=== PATIENT | male | born 1950 | race Caucasian/White ===

== ENCOUNTER 2020-11-12 22:47 | Inpatient (IN) | payer BC, MEDICARE ==
[~2020-11-12] VITALS: Ht 175.3 cm; Wt 91.1 kg
[~2020-11-12 22:47] MED LIST: ACIPHEX20 MG PO; ASPIRIN EC81 MG PO; COZAAR50 MG PO; FEXOFENADINE H180 MG PO; HYDROCODON-ACE1 EA11 PO; HYDROMORPHONE HC4 MG PO; IRON325 M1 PO; LIPITOR20 MG PO; LISINOPRIL20 MG PO; LISINOPRIL30 MG PO; METOPROLOL SUC100 MG PO; MILK OF MA400 MG/5 M PO; MIRALAX17 GM PO; NORCO 5-325 TA1 EACH PO; NUCYNTA50 MG PO; OXYCODONE HCL5 MG PO; SIMVASTATIN40 MG PO; SKELAXIN800 MG PO; TOPROL XL100 MG PO; TRAMADOL HCL50 MG PO; VITAMIN C100 MG PO; VITAMIN C500 M1 PO; XANAX0.5 MG PO; XARELTO10 MG PO
[2020-11-12] MEDS ORDERED: LISINOPRIL20 MG PO (23:08)
[2020-11-12] MEDS ORDERED: METOPROLOL SUCC50 MG PO (23:09)
[2020-11-12] MEDS ORDERED: JANUMET 50-5001 EACH PO (23:10)
--- NOTE | 2020-11-13 01:56 | NUR ---
ADMIT THIS 70 YEAR OLD MALE TO CCU PER STRETCHER FROM ED. IS ALERT AND ORIENTED X3. AMB TO BR TO VOID REPORTS SHY BLADDER. HR TO 160'S WITHOUT SYMPTOMS. INFORMED WOULD NOT ALLOW THAT AGAIN UNTIL HR UNDER BETTER CONTROL. CARDIZEM INFUSION ON ARRIVAL AT 7.5MG/HR, INCREASED TO 15MG/HR AT 0105 HR VARIES 120-150. NO CHEST PAIN AT THIS TIME. SLIPPER SOCKS IN PLACE.
--- NOTE | 2020-11-13 02:04 | NUR ---
HR 90'S , BP 98/69, CARDIZEM DEC TO 12MG/HR
--- NOTE | 2020-11-13 03:02 | NUR ---
HR 80-90'S AT REST, BP 91/62, CARDIZEM DEC TO 10MG/HR. PT RESTING WATCHING TV.
--- NOTE | 2020-11-13 04:18 | NUR ---
CONT TO REST BUT NOT SLEEP. ASSESSMENT DONE.
--- NOTE | 2020-11-13 05:19 | NUR ---
HR HAS BEEN CONTROLLED AT REST ON CARDIZEM 10MG/HR. PT STOOD AT BEDSIDE TO VOID AND HR INC UP TO 180. HR BACK TO 80'S WITH IN MINUTES OF GETTING BACK TO BED. ASKING FOR COFFEE WITH BREAKFAST. ADVISED TO DRINK DECAF COFFEE WITH BREAKFAST AND DECREASE CAFFIENE INTAKE FOR NOW.
--- NOTE | 2020-11-13 06:26 | NUR ---
HAS NOT SLEPT SINCE ADMISSION. HR 80'S AT REST. PO CARDIZEM WAS GIVEN.
--- NOTE | 2020-11-13 07:30 | NUR ---
REPORT RECIEVED. PATIENT RESTING IN BED. DENIES PAIN OR DIZZINESS. WHEN TALKING WITH PATIENT, HR FROM 86 TO 170'S. WHEN PATIENT GETS MORE ANXIOUS HR GOES UP. PATIENT ASK FOR SLEEPING PILL, TOLD PATIENT I WILL TALK WITH ABOUT GETTING HIM SOMETHING FOR ANXIETY. PATIENT STATES HE ANXIOUS.
--- NOTE | 2020-11-13 08:00 | NUR ---
ASSESSMENT DONE. CARDIZEM GTT INCREASED TO 12.5 MG/HR.
--- NOTE | 2020-11-13 09:30 | NUR ---
DR. ZHENG HERE TO SEE PATIENT. PATIENT HR UP TO 150-170. ORDERS RECIEVED TO GIVE LOPRESSOR 25 MG PO AND 5 MG IV.
--- NOTE | 2020-11-13 09:40 | NUR ---
LOPRESSOR 5 MG IV AND LOPRESSOR 25 MG PO GIVEN ORDERS BY DR. ZHENG. DR. ZHENG DISCUSSED POC TO PATIENT, HE ALS TALKED WITH PATIENT ABOUT A-FIB AND TAKING BLOOD THINNER WELL HAVING AN ECHOCARDIOCARDIOGRAM. PATIENT IS UNDERSTANDING.
--- NOTE | 2020-11-13 09:45 | NUR ---
HR DOWN TO 80'S AFTER LOPRESSOR 5 MG IV GIVEN.
--- NOTE | 2020-11-13 10:05 | NUR ---
ROUTINE MEDICATIONS GIVEN, VISTARIL 25 MG PO GIVEN FOR ANXIETY. SHAVE GIVEN PER PATIENT REQUEST.
--- NOTE | 2020-11-13 13:46 | NUR ---
CARDIZEM GTT TO OFF.
--- NOTE | 2020-11-13 13:50 | NUR ---
CONVERTED TO NSR. DR. ZHENG AWARE NO FUTHER ORDERS AT THIS TIME. PATIENT IS RESTING. IS W/O C/O.
--- NOTE | 2020-11-13 14:20 | NUR ---
RESTFUL AT THIS TIME DENIES PROBLEMS, REMAINS IN SR. IVF COMPLETE.
[2020-11-13] MEDS ORDERED: FUROSEMIDE20 MG PO (15:40)
[2020-11-13] MEDS ORDERED: ATORVASTATIN CA20 MG PO (15:50)
[2020-11-13] MEDS ORDERED: SENOKOT8.6 MG PO (16:14)
[2020-11-13] MEDS ORDERED: MACULAR HEALTH1 EACH PO (16:14)
--- NOTE | 2020-11-13 16:15 | NUR ---
MED REC COMPLETE
--- NOTE | 2020-11-13 16:50 | NUR ---
DR. ZHENG UPDATED ON PATIENT STATUS. ORDERS RECIEVED TO TRANSFER TO MED-SURG W/O TELE. PATIENT SITTING IN CHAIR.
--- NOTE | 2020-11-13 17:13 | EKG ---
[facility] [address] [facility] [place] [address] Signed Atrial fibrillation with rapid ventricular response Nonspecific ST abnormality Abnormal ECG When compared with ECG of 12-NOV-2020 22:55, (Unconfirmed) Vent. rate has decreased BY 69 BPM Confirmed by DAYSI ZHENG DO ([id number]) on 11/13/2020 5:13:39 PM Electronically Signed By: DAYSI ZHENG DO 11/13/20 1713 PATIENT NAME: REBECA POLK Electrocardiogram DATE OF : 54 PHYSICIAN: DAYSI ZHENG DO REPORT #: [id number] REPORT IS CONFIDENTIAL AND NOT TO BE RELEASED WITHOUT AUTHORIZATION
--- NOTE | 2020-11-13 17:13 | EKG ---
[facility] [address] [facility] [place], [place] [address] Signed Atrial fibrillation with rapid ventricular response Nonspecific ST abnormality Abnormal ECG When compared with ECG of 12-NOV-2020 22:55, (Unconfirmed) Previous ECG has undetermined rhythm, needs review Confirmed by DAYSI ZHENG DO ([id number]) on 11/13/2020 5:13:34 PM Electronically Signed By: DAYSI ZHENG DO 11/13/20 1713 PATIENT NAME: REBECA POLK Electrocardiogram DATE OF : 54 PHYSICIAN: DAYSI ZHENG DO REPORT #: [id number] REPORT IS CONFIDENTIAL AND NOT TO BE RELEASED WITHOUT AUTHORIZATION
--- NOTE | 2020-11-13 17:15 | NUR ---
REPORT TO ELZA HARMON RN ON MED-SURG. MONITOR DC'D.
--- NOTE | 2020-11-13 17:25 | NUR ---
AMBULATED TO [facility] ACCOMP BY RN. TOLERATED AMBULATION WELL. UPON ARRIVAL TO [facility] PATIENT SITTING AT BEDSIDE TO EAT DINNER.
--- NOTE | 2020-11-13 17:30 | NUR ---
PT AMBULATED TO ROOM FROM CCU W/ JOAN CCU RN. DINNER IN ROOM. PT SITTING UP ON SIDE OF BED EATING. GOOD APPETITE THIS EVENING. CBG 111 NOT REQUIRING ANY SS INSULIN. LUNG SOUNDS ARE CLEAR. PT DENIES PAIN OR NAUSEA. BOWEL TONES ACTIVE. BM TODAY. VSS. HR REGULAR. CALL LIGHT IN REACH. NO OTHER NEEDS AT THIS TIME.
--- NOTE | 2020-11-13 19:15 | NUR ---
BEDSIDE REPORT RECEIVED FROM OFFGOING RN, ZULLY. PT RESTING IN BED WITH EYES CLOSED, LYING ON HIS L SIDE. PT DOES NOT WAKE WHILE ANIMAL HUSBANDRY WORKER IN ROOM. WHITE BOARD UPDATED. CALL LIGHT IN REACH.
--- NOTE | 2020-11-13 21:52 | NUR ---
PT ASSESSMENT COMPLETE. PT RESTING IN BED WITH EYES CLOSED. WAKES EASILY. PT DENIES PAIN, NAUSEA, AND SOB. HR REGULAR. IV FLUSHED, WNL. SCHEDULED MEDICATIONS ADMINISTERED. POC FOR THIS SHIFT DICUSSED. PT STATES UNDERSTANDING. DENIES QUESTIONS OR NEEDS AT THIS TIME. CALL LIGHT IN REACH.
--- NOTE | 2020-11-14 01:44 | NUR ---
PT RESTING IN BED WITH EYES CLOSED. RESTING ON HIS L SIDE. RESPIRATIONS EVEN AND UNLABORED. APPEARS TO BE SLEEPING. CALL LIGHT IN REACH.
--- NOTE | 2020-11-14 03:20 | NUR ---
PT ASSESSMENT COMPLETE. PT RESTING IN BED WITH EYES CLOSED. WAKES EASILY WHEN AG EQUIPMENT FIELD SERVICE TECHNICIAN ENTERS THE ROOM. PT DENIESPAIN, NAUSEA, OR SOB. HR REGULAR. PT DENIES CHEST PAIN. DISCUSSION WITH PT ABOUT WHETHER HE NEEDS TO VOID, HAD DRANK MINIMAL WATER DESPITE ENCOURAGEMENT EARLY IN THE SHIFT. PT STATES THAT HE DOES NOT FEEL ANY URGE TO VOID. NO DISTENTION OR ABD TENDERNESS PRESNT. DISCUSSED BLADDER SCAN WITH PT TO SEE IF THERE WAS URINE IN THE BLADDER. PT STATES, "NO". AG EQUIPMENT FIELD SERVICE TECHNICIAN EXPLAINS THIS IS NONINVASIVE, PT RAISES VOICE AND STATES "I DON'T THINK YOU ARE UNDERSTANDING, I AM NOT DOING IT! I KNOW MY BODY AND I'LL GO WHEN I'M READY!" AG EQUIPMENT FIELD SERVICE TECHNICIAN EXPRESSES UNDERSTANDING. PT DENIES FURTHER NEEDS AT THIS TIME. CALL LIGHT IN REACH.
--- NOTE | 2020-11-14 03:50 | NUR ---
PT UTILIZES CALL LIGHT, REQUESTS TO GET UP AND TAKE A SHOWER. SEMICONDUCTOR PACKAGES TESTER TO ROOM TO ASSIST PT.
--- NOTE | 2020-11-14 03:56 | NUR ---
TOWEL, TOILETRES, SOAP AND SOCKS PROVIDED. COFFEE PROVIDED. SALINE LOCKED IV SITE WRAPPED. ALL READY FOR SHOWER.
--- NOTE | 2020-11-14 04:46 | NUR ---
SANDING MACHINE OPERATOR TO ROOM TO CHECK ON PT'S PROGRESS IN SHOWER. PT SITTING AT EDGE OF BED. BATHROOM TIDIED UP AFTER SHOWER. PT APOLOGETIC STATES, SOMETIMES WHEN I FIRST WAKE UP I AM GRUMBLY. SANDING MACHINE OPERATOR STATES UNDERSTANDING. PT REQUESTS COFFEE, PROVIDED. DENIES FURTHER NEEDS AT THIS TIME. CALL LIGHT IN REACH.
--- NOTE | 2020-11-14 06:03 | NUR ---
PT RESTING IN BED, VENDOR ANALYST AT BEDSIDE FOR VS. PT IN GOOD SPIRITS. STATES THAT HE IS FEELING MUCH BETTER TODAY. ASKS APPROPRIATE QUESTIONS REGARDING SCHEDULED MEDICATION. EDUCATION PROVIDED. PT DENIES FURTHER NEEDS AT THIS TIME. CALL LIGHT IN REACH.
--- NOTE | 2020-11-14 07:10 | NUR ---
BEDSIDE HANDOFF REPORT RECEIVED FROM LITURGICAL MUSIC DIRECTOR RN. PT RESTING IN BED. PT DENIES NEEDS AT THIS TIME.
--- NOTE | 2020-11-14 08:45 | NUR ---
PT SITTING IN CHAIR, ATE BREAKFAST, HAS GOOD APPETITE. PT ON ROOM, DENIES SOB, LUNG SOUNDS CLEAR. BOWEL TONES ACTIVE, DENIES NAUSEA. HR REGULAR. PT DENIES PAIN. PT WITHOUT EDEMA, CMS INTACT. IV SALINE LOCKED. PT VOIDING QS. PT DISCUSSED CONCERN OF IF HIS PCP HAS PUT IN REFERAL FOR CARDIAC MONITORING AND STRESS TEST, HE WOULD LIKE TO HAVE REFERAL FOR [facility]PATIENT STRESS TEST, DISCUSSED THAT WE WILL CALL PCP AND COMMUNICATE NEEDS. PT DENIES OTHER NEEDS AT THIS TIME.
--- NOTE | 2020-11-14 10:30 | NUR ---
Spoke with Brian, he lives in [place] with his Jazzy. They chen e in a 1 story home with 3 steps. He is retired and works. States he is active and does yard and garden work. Plans on returning to the [facility] for exercise now that its reopened. We had an in depth conversat- ion about managing care at home. Pt drove himself to the hospital with chest pain and fell in the parking lot coming into the hospital. He now realizes it would be better to awaken his , as the ER call- her after he arrived. He has a good understanding of when to call his Dr. and when to call the ambulance. Also has questions about anti- coagulants and we discussed Afib and clots. Concerns for strokes and medications. Plans on dc today. Will follow up with cardiology.
[2020-11-14] MEDS ORDERED: DILTIAZEM 24HR180 M1 PO (10:49)
[2020-11-14] MEDS ORDERED: ELIQUIS5 MG PO (10:49)
--- NOTE | 2020-11-14 14:43 | NUR ---
GAVE ENCOURAGEMENT TO PT HE AND WERE LEAVING FOLLOWING DC
== END 2020-11-14 13:50 | disposition home or self-care (01) | DRG 310 ==
LOC: ED 22:47 → CCU 22:49 → MS 11-13 09:50 → CCU 11-13 09:51 → MS 11-13 17:40
PROVIDERS: ADMIT Student in an Organized Health Care Education/Training Program; ATTEND Student in an Organized Health Care Education/Training Program
DX: I48.91 Unspecified atrial fibrillation (principal); Z20.822 Contact with and (suspected) exposure to COVID-19; I34.0 Nonrheumatic mitral (valve) insufficiency; I10 Essential (primary) hypertension; E11.9 Type 2 diabetes mellitus without complications; K21.9 Gastro-esophageal reflux disease without esophagitis; I51.7 Cardiomegaly; Z79.899 Other long term (current) drug therapy; Z88.8 Allergy status to other drugs, medicaments and biological substances; Z88.5 Allergy status to narcotic agent
CPT/HCPCS: 36415; 71045; 80048; 80053; 83735; 84443; 84484; 85025; 85610; 85730; 93005; 93010; 93306; C9803; J7121; Q0177; U0003

== ENCOUNTER 2024-11-16 13:19 | Emergency (ER) | payer MEDICARE ==
[~2024-11-16] VITALS: Ht 175.3 cm; Wt 88.0 kg
[~2024-11-16 13:19] MED LIST changes: +ATORVASTATIN CA20 MG PO; +DILTIAZEM 24HR180 M1 PO; +ELIQUIS5 MG PO; +FUROSEMIDE20 MG PO; +JANUMET 50-5001 EACH PO; +MACULAR HEALTH1 EACH PO; +METOPROLOL SUCC50 MG PO; +SENOKOT8.6 MG PO
[2024-11-16 13:53] LABS: BASOPHILS 0.4 % (0-2); HEMATOCRIT 45.2 % (35.0-50.0); HEMOGLOBIN 15.7 g/dL (12.0-18.0); MCH 29.8 (27-36); MCHC 34.7 g/dl (30-36); MONOCYTES 9.7 % (0-12); NEUTROPHILS 55.9 % (39-80); PLATELET COUNT 424 K/uL (140-440); RBC 5.25 M/ul (4.3-5.7); RDW 13.6 (10.5-15.0)
[2024-11-16] MEDS ORDERED: ATORVASTATIN CA40 MG PO (13:55)
[2024-11-16] MEDS ORDERED: METOPROLOL SUC100 MG PO (13:56)
[2024-11-16] MEDS ORDERED: PIOGLITAZONE HC15 MG PO (13:57)
[2024-11-16] MEDS ORDERED: LISINOPRIL10 MG PO (13:58)
[2024-11-16] MEDS ORDERED: FLECAINIDE ACE100 MG PO (13:58)
[2024-11-16] MEDS ORDERED: ondansetron HCL 4 MG/2 ML VIAL IV ONE (14:00)
[2024-11-16] MEDS ORDERED: SODIUM CHLORIDE 0.9% 1,000 ML IV PRN ×2 (14:00→15:00)
[2024-11-16 14:13] LABS: ALBUMIN 3.2 g/dL (3.4-5.0); ALBUMIN/GLOBULIN RATIO 0.91 (1.1-2.4); ANION GAP 14.8 (7-21); BILIRUBIN, TOTAL 1.2 mg/dL (0.2-1.0); BUN/CREATININE RATIO 7.69 (6.0-28.6); CALCIUM 9.6 mg/dL (8.5-10.1); CREATININE, SERUM 1.43 mg/dL (0.70-1.30); POTASSIUM 3.8 mmol/L (3.5-5.1); PROTEIN, TOTAL 6.7 g/dL (6.4-8.2)
[2024-11-16 17:05] LABS: ALBUMIN 2.6 g/dL (3.4-5.0); ALBUMIN/GLOBULIN RATIO 0.93 (1.1-2.4); ANION GAP 11.7 (7-21); BUN/CREATININE RATIO 8.26 (6.0-28.6); CALCIUM 8.3 mg/dL (8.5-10.1); CREATININE, SERUM 1.21 mg/dL (0.70-1.30); POTASSIUM 3.7 mmol/L (3.5-5.1); PROTEIN, TOTAL 5.4 g/dL (6.4-8.2)
[2024-11-16 17:35] LABS: BILIRUBIN, URINE NEGATIVE (negative); BLOOD/HGB, URINE TRACE-I (Negative); KETONE, URINE NEGATIVE (Negative); LEUK ESTERASE, URINE NEGATIVE (negative); NITRITE, URINE NEGATIVE (negative); PH, URINE 5.5 (5-7)
[2024-11-16 17:40] LABS: RED BLOOD CELLS, URINE 0-1 /hpf (0-5)
[2024-11-16 17:41] LABS: BACTERIA, URINE NONE SEEN /hpf (negative); CASTS, URINE HYALINE 1+ \\lpf; COLLECTION TYPE, URINE CLEAN CATCH; CRYSTALS, URINE NONE SEEN (0-1+); EPITHELIAL CELLS, URINE SQUAMOUS 1+ /lpf (0-1+); REFLEX CULTURE, URINE No (No)
[2024-11-16] MEDS ORDERED: SUCRALFATE 1 GM TAB PO ONE (18:30)
[2024-11-16] MEDS ORDERED: CARAFATE1 GM PO (18:39)
[2024-11-16] MEDS ORDERED: OMEPRAZOLE20 MG PO (18:39)
[2024-11-16] MEDS ORDERED: ONDANSETRON ODT8 MG PO (18:39)
[2024-11-16 18:54] VITALS: BP 137/67
== END 2024-11-16 18:54 | disposition home or self-care (01) ==
LOC: ED 13:19
PROVIDERS: Emergency Medicine
DX: K21.9 Gastro-esophageal reflux disease without esophagitis (principal); N17.9 Acute kidney failure, unspecified; I10 Essential (primary) hypertension; E78.00 Pure hypercholesterolemia, unspecified; Z79.899 Other long term (current) drug therapy; Z88.6 Allergy status to analgesic agent; Z88.8 Allergy status to other drugs, medicaments and biological substances
CPT/HCPCS: 36415; 71250; 74177; 80053; 81001; 83690; 84484; 85025; 96361; 99284-25; J2405; J7030; Q9967

== ENCOUNTER 2024-12-10 21:25 | Emergency (ER) | payer MEDICARE ==
[~2024-12-10] VITALS: Ht 175.3 cm; Wt 86.0 kg
[~2024-12-10 21:25] MED LIST changes: +ATORVASTATIN CA40 MG PO; +CARAFATE1 GM PO; +FLECAINIDE ACE100 MG PO; +LISINOPRIL10 MG PO; +OMEPRAZOLE20 MG PO; +ONDANSETRON ODT8 MG PO; +PIOGLITAZONE HC15 MG PO
--- OUTSIDE RECORDS SUMMARY | 2024-12-10 21:31 | XMS ---
PreManage Notification: REBECA POLK Security Environmental Health Manager Events No recent Security Events currently on file CRITERIA MET - [facility] - 2 Visits in 30 Days CARE PROVIDERS There are no care providers on record at this time. [facility] has no Care Guidelines for this patient. [facility] MO[facility] NOTE: Visits indicate total known visits. ED/C VISIT TRACKING (12 MO.) 12/10/2024 21:[address] [facility] [place] TYPE: Emergency COMPLAINT: - FALL 11/16/2024 13:[address] [facility] [place] TYPE: Emergency COMPLAINT: - ABDOMINAL PAIN DIAGNOSES: - Acute kidney failure, unspecified - Allergy status to analgesic agent - Allergy status to other drugs, medicaments and biological substances - Essential (primary) hypertension - Gastro-esophageal reflux disease without esophagitis - Other longterm (current) drug therapy - Pure hypercholesterolemia, unspecified - Unspecified abdominal pain INPATIENT VISIT TRACKING (12 MO.) No inpatient visits to display in this time frame [email or web address]
[2024-12-10 21:43] LABS: BASOPHILS 0.9 % (0-2); HEMATOCRIT 39.5 % (35.0-50.0); HEMOGLOBIN 13.7 g/dL (12.0-18.0); LYMPHOCYTES 21.6 % (24-44); MCH 29.2 (27-36); MCHC 34.7 g/dl (30-36); MCV 84.1 fl (81-99); MONOCYTES 6.3 % (0-12); NEUTROPHILS 71.2 % (39-80); PLATELET COUNT 627 K/uL (140-440); RDW 14.1 (10.5-15.0)
[2024-12-10 21:51] LABS: ALBUMIN 3.2 g/dL (3.4-5.0); ALBUMIN/GLOBULIN RATIO 0.94 (1.1-2.4); ALCOHOL, MEDICAL <3 ng/dL (<3); ALKALINE PHOSPHATASE 105 U/L (46-116); ALT (SGPT) 21 U/L (14-59); ANION GAP 21.5 (7-21); AST (SGOT) 20 U/L (15-37); BILIRUBIN, TOTAL 0.7 mg/dL (0.2-1.0); BUN/CREATININE RATIO 8.81 (6.0-28.6); CALCIUM 9.4 mg/dL (8.5-10.1); CARBON DIOXIDE 19 mmol/L (21-32); CHLORIDE 101 mmol/L (98-107); CREATININE, SERUM 2.61 mg/dL (0.70-1.30); GLOMERULAR FILTRATION RATE,EST 25 mL/min (>60); POTASSIUM 3.5 mmol/L (3.5-5.1); PROTEIN, TOTAL 6.6 g/dL (6.4-8.2); UREA NITROGEN 23 mg/dL (7-18)
[2024-12-10 22:12] LABS: ABO B; ANTIBODY SCREEN NEGATIVE; RH NEGATIVE
[2024-12-10] MEDS ORDERED: HYDROmorphone HCL 1 MG/ML SYR IV PRN (22:15)
[2024-12-10] MEDS ORDERED: ondansetron HCL 4 MG/2 ML VIAL IV PRN (22:15)
[2024-12-10] MEDS ORDERED: LACTATED RINGER'S 1,000 ML IV ONE (23:15)
[2024-12-11] MEDS ORDERED: ondansetron HCL 4 MG/2 ML VIAL IV ONE (03:15)
[2024-12-11 03:19] LABS: BILIRUBIN, URINE POSITIVE (negative); BLOOD/HGB, URINE NEGATIVE (Negative); KETONE, URINE TRACE (Negative); LEUK ESTERASE, URINE NEGATIVE (negative); NITRITE, URINE NEGATIVE (negative); PH, URINE 5.5 (5-7)
[2024-12-11 03:50] LABS: AMPHETAMINES, URINE NEGATIVE (NEGATIVE); BARBITURATES, URINE NEGATIVE (NEGATIVE); BENZODIAZEPINE, URINE NEGATIVE (NEGATIVE); BUPRENORPHINE, URINE NEGATIVE (NEGATIVE); CANNABINOID, URINE NEGATIVE (NEGATIVE); COCAINE, URINE NEGATIVE (NEGATIVE); ECSTASY, URINE NEGATIVE (NEGATIVE); FENTANYL, URINE POSITIVE (NEGATIVE); METHADONE, URINE NEGATIVE (NEGATIVE); OPIATES, URINE POSITIVE (NEGATIVE); OXYCODONE, URINE NEGATIVE (NEGATIVE); PHENCYCLIDINE, URINE NEGATIVE (NEGATIVE)
[2024-12-11 05:55] VITALS: BP 110/71
--- NOTE | 2024-12-12 20:42 | EKG ---
[facility] [address] [place] [address] S[address] Normal sinus rhythm ST \T\ T wave abnormality, consider inferior ischemia ST \T\ T wave abnormality, consider anterolateral ischemia Prolonged QT Abnormal ECG When compared with ECG of 12-NOV-2020 23:27, Sinus rhythm has replaced Atrial fibrillation Vent. rate has decreased BY 49 BPM T wave inversion now evident in Inferior leads T wave inversion now evident in Anterolateral leads Confirmed by Eron Ramirez MD () on 12/12/2024 8:41:50 PM Electronically Signed By: ERON RAMIREZ MD 12/12/242041 PATIENT NAME: REBECA POLK Electrocardiogram DATE OF : 54 PHYSICIAN: ERON RAMIREZ MD REPORT #: [id number] REPORT IS CONFIDENTIAL AND NOT TO BE RELEASED WITHOUT AUTHORIZATION
== END 2024-12-11 05:45 | disposition home or self-care (01) ==
LOC: ED 21:25
PROVIDERS: Internal Medicine
DX: R55 Syncope and collapse (principal); S93.401A Sprain of unspecified ligament of right ankle, initial encounter; S00.03XA Contusion of scalp, initial encounter; W18.30XA Fall on same level, unspecified, initial encounter; I10 Essential (primary) hypertension; Z88.8 Allergy status to other drugs, medicaments and biological substances; Z79.01 Long term (current) use of anticoagulants; Z79.899 Other long term (current) drug therapy
CPT/HCPCS: 36415; 70450; 71045; 72125; 73610; 80053; 80307; 81003; 84484; 85025; 86850; 86900; 86901; 93005; 93010; 96374; 96375; 96376; 99285-25; G0480; J1171; J2405; J7121

== ENCOUNTER 2024-12-13 11:42 | Day surgery (SDC) | payer MEDICARE ==
[~2024-12-13] VITALS: Ht 175.3 cm; Wt 83.2 kg
[~2024-12-13 11:42] MED LIST changes: +IBLOOD GLUCOSE TEST STRIP 1 EA TEST VI PRN; +LACTATED RINGER'S 1,000 ML IV SCH; +LIDOCAINE HCL 1% 5 ML SDV INJ ONE; +LIDOCAINE HCL 4% 50 ML BTL TOP SCH; +MIDAZOLAM HCL 5 MG/5 ML VIAL IV PRN; +fentaNYL citrate 100 MCG/2 ML VIAL IV PRN
[2024-12-13 11:55] VITALS: BP 145/70
[2024-12-13] MEDS ORDERED: NORVASC10 MG PO (11:59)
[2024-12-13] MEDS ORDERED: METFORMIN HCL1000 M1 PO (12:32)
[2024-12-13] MEDS ORDERED: fentaNYL citrate 100 MCG/2 ML VIAL ONE (12:41)
[2024-12-13] MEDS ORDERED: MIDAZOLAM HCL 5 MG/5 ML VIAL ONE (12:41)
[2024-12-13] MEDS ORDERED: CEFAZOLIN SODIUM 2 GM/20 ML SYR IV ONE (12:45)
--- NOTE | 2024-12-13 13:39 | NUR ---
12/13/24 Caroline Martino OXYGEN SATURATION REMAINS 98% ON 2L VIA NC. OXYGEN IS DISCONTINUED AT THIS TIME. DR WARD PRESENTS TO THE BEDSIDE AND IS SPEAKING WITH THE PATIENT. HIS QUESTIONS ARE ANSWERED.
[2024-12-13 14:01] VITALS: BP 100/60
--- NOTE | 2024-12-13 19:14 | OR ---
[facility] [address] [place], [place] [address] Signed DATE OF OPERATION: 12/13/2024 SURGEON: Calvin Ward MD PREOPERATIVE DIAGNOSES: 1. Greater than 30 pounds weight loss and epigastric pain. 2. History of peptic ulcer. POSTOPERATIVE DIAGNOSES: No evidence of esophageal neoplasm; mild distal esophagitis, diffuse gastritis, poor flap valve and gastric polyps. PROCEDURE: Esophagogastroduodenoscopy with biopsy. ANESTHESIA: Intravenous sedation fentanyl 100 mcg and Versed 8.5 mg. INDICATION: This 74-year-old white man is a patient of Dr. Mendy Harley who has had significant weight loss and epigastric pain and some dysphagia. Indeed, he has lost over 30 pounds in the past few months. He has dysphagia to liquids to a small degree but dominantly solids which were very problematic for him. He was seen in the emergency room on the and a CT scan was performed showing no specific findings. He was noted to have diverticula of the colon. His chest CT described no evidence of malignancy in the chest, though there were moderate coronary artery calcifications. He underwent upper endoscopy more than 20 years ago as well as colonoscopy was thought to have heartburn and reflux symptoms at that time. It is uncertain regarding Gonzalez's esophagus. In November, he was tolerating only Jello in yogurt due to his swallowing difficulty. He saw YANIV Ridley for orthopedic issues, having had a cortisone injection to joint and was recognized as having significant issues and on that basis I was called and recommended to see the patient promptly to apply for a plan for upper endoscopy. He had some associated mild hoarseness also. Currently, he has enough pain and difficulty swallowing, anything more than full liquid is problematic for him. He is now to undergo upper endoscopy to better characterize the problem. He understands the risk of bleeding, infection, and perforation related to upper endoscopy and wished to proceed. FINDINGS: There was no neoplasm or obstructing lesion of the esophagus and none of the stomach or duodenum either. He did have mild distal esophagitis and diffuse mild gastritis. There Electronically Signed By: CALVIN WARD MD 12/13/24 1914 PATIENT NAME: REBECA POLK OPERATIVE REPORT DATE OF : 54 REPORT #: [id number] PHYSICIAN: CALVIN WARD MD PCP: MENDY HARLEY MD REPORT IS CONFIDENTIAL AND NOT TO BE RELEASED WITHOUT AUTHORIZATION [facility] [address] [place], [place] [address] Signed was no gastric outlet obstruction. The duodenum appeared reasonably normal. CLOtest was negative. DESCRIPTION OF PROCEDURE: The patient was brought to the endoscopy suite, given topical lidocaine hypopharyngeal anesthesia and placed in lateral decubitus position. A bite block was placed. He was given intravenous sedation to point of slurred speech and nystagmus. An Olympus video upper endoscope was passed in the hypopharynx. The vocal cords appeared normal. There was no sign of hypopharyngeal mass. The scope was advanced to the esophagus without problem, throughout its length it appeared reasonably normal though there was mild distal esophagitis but no string, stricture, neoplasm or varices. The scope was advanced to the stomach which was insufflated with air. Rugal folds were normal. Antral motility was normal. Pylorus was normal. Scope was passed into the duodenum, which was normal. Biopsies were taken of the duodenum to assess for celiac disease. The scope was withdrawn and biopsies then taken of the antrum for both MEDHAT and pathologic testing. Retort Loader small gastric polyp was excised as well. Retroflexed view was undertaken showing a poor flap valve but no large hiatal hernia. The scope was withdrawn and biopsies then taken of the distal esophagus, midesophagus and more proximal esophagus. Again showing no sign of neoplasm. Scope was removed. The patient was taken to the recovery room in good condition. CONCLUDING DIAGNOSIS: Uncertain as to the etiology of dysphagia and significant weight loss. At this point, we will have him undergo video upper GI to assess for esophageal dysmotility problems and of course the possibility of achalasia otherwise. The findings were not consistent with achalasia generally speaking at least endoscopically. He will return to see me after the upper GI is complete. MD ANALISA Diehl/MODL /[id number] cc: YANIV High MD Electronically Signed By: CALVIN WARD MD 12/13/24 1914 PATIENT NAME: REBECA POLK OPERATIVE REPORT DATE OF : 54 REPORT #: [id number] PHYSICIAN: CALVIN WARD MD PCP: MENDY HARLEY MD REPORT IS CONFIDENTIAL AND NOT TO BE RELEASED WITHOUT AUTHORIZATION [address] [address] Signed Copies: RADHA LUCIANO ROBERT D DMD ~ Electronically Signed By: CALVIN WARD MD 12/13/24 1914 PATIENT NAME: REBECA POLK KIRIT OPERATIVE REPORT DATE OF : 54 REPORT #: [id number] PHYSICIAN: ACLVIN WARD MD PCP: MENDY HARLEY MD REPORT IS CONFIDENTIAL AND NOT TO BE RELEASED WITHOUT AUTHORIZATION
--- NOTE | 2024-12-15 13:14 | PATH ---
[facility] [address] [place], [place] [address] Signed SPECIMEN(S): A DUODENAL BIOPSY SPECIMEN(S): B ANTRUM BIOPSY SPECIMEN(S): C GASTRIC POLYP SPECIMEN(S): D LOWER ESOPHAGEAL BIOPSY SPECIMEN(S): E MIDDLE ESOPHAGEAL BIOPSY SPECIMEN SOURCE: A. DUODENAL BIOPSY B. ANTRUM BIOPSY C. GASTRIC POLYP D. LOWER ESOPHAGEAL BIOPSY E. MIDDLE ESOPHAGEAL BIOPSY CLINICAL HISTORY: Esophageal dysphagia, weight loss, epigastric pain, mild esophagitis, mild gastritis FINAL PATHOLOGIC DIAGNOSIS: A. Duodenum, biopsy: - Duodenal mucosa with intact villous architecture. - Negative for intraepithelial lymphocytosis, parasites or malignancy. B. Antrum, biopsies: - Fragments of superficial gastric mucosa with no significant histopathologic changes. - Negative for Helicobacter pylori by HE. - Negative for intestinal metaplasia, dysplasia or malignancy. C. Gastric polyp, biopsies: - Fundic gland polyp. D. Lower esophagus, biopsies: - Fragments of superficial squamous mucosa and minimal glandular tissue with mild reflux-associated change. - Negative for eosinophilic esophagitis, intestinal metaplasia, dysplasia or malignancy. E. Middle esophagus, biopsies: - Fragments of superficial squamous mucosa with no significant histopathologic changes. - Negative for eosinophilic esophagitis, dysplasia or malignancy. DWS:aisha MICROSCOPIC EXAMINATION: Histologic sections of all submitted blocks are examined by light microscopy. PATIENT NAME: REBECA POLK PATHOLOGY DATE OF : 54 REPORT #: [id number] PHYSICIAN: [facility] PCP: MENDY HARLEY MD REPORT IS CONFIDENTIAL AND NOT TO BE RELEASED WITHOUT AUTHORIZATION [facility] [address] [place], [place] [address] Signed These findings, together with the gross examination, support the pathologic diagnosis. GROSS DESCRIPTION: A. The specimen, labeled and designated "Polk, duodenal biopsy," is received in formalin and consists of two ruffin soft tissue fragments, ranging from 0.2-0.3 cm. Entirely submitted in (A1). B. The specimen, labeled and designated "Polk, antrum biopsy," is received in formalin and consists of two ruffin soft tissue fragments, ranging from 0.5-0.6 cm. Entirely submitted in (B1). C. The specimen, labeled and designated "Polk, gastric polyp," is received in formalin and consists of three ruffin soft tissue fragments, ranging from 0.2-0.5 cm. Entirely submitted in (C1). D. The specimen, labeled and designated "Polk, lower esophageal biopsy," is received in formalin and consists of five ruffin soft tissue fragments, ranging from 0.3-0.7 cm. Entirely submitted in (D1). E. The specimen, labeled and designated "Polk, middle esophageal biopsy," is received in formalin and consists of three ruffin soft tissue fragments, ranging from 0.3-0.9 cm. Entirely submitted in (E1). VB (under the direct supervision of a pathologist) The Gross Description was prepared using a voice recognition system. The report was reviewed for accuracy; however, sound-alike word errors, addition and/or deletions may occur. If there is any question about this report, please contact Client Services. PERFORMING LABORATORY: Technical component was performed by [facility], [address] [place] [id number] (CLIA# [id number]). Professional interpretation was performed by [facility], [address] [place] [address] (CLIA#: [id number]). Diagnostician: Yobany Arana MD Pathologist Electronically Signed 12/15/2024 Copies: ~ PATIENT NAME: POLKREBECA PATHOLOGY DATE OF : 54 REPORT #: [id number] PHYSICIAN: [facility] PCP: MENDY HARLEY MD REPORT IS CONFIDENTIAL AND NOT TO BE RELEASED WITHOUT AUTHORIZATION
== END 2024-12-13 14:10 | disposition home or self-care (01) ==
LOC: DS 11:42
PROVIDERS: ATTEND Surgery
PROC: 0DB68ZX Excision of Stomach, Via Natural or Artificial Opening Endoscopic, Diagnostic (ICD-10-PCS; 2024-12-13)
PROC: 0DB28ZX Excision of Middle Esophagus, Via Natural or Artificial Opening Endoscopic, Diagnostic (ICD-10-PCS; 2024-12-13)
PROC: 0DB38ZX Excision of Lower Esophagus, Via Natural or Artificial Opening Endoscopic, Diagnostic (ICD-10-PCS; 2024-12-13)
PROC: 0DB98ZX Excision of Duodenum, Via Natural or Artificial Opening Endoscopic, Diagnostic (ICD-10-PCS; principal; 2024-12-13 13:00)
DX: K29.70 Gastritis, unspecified, without bleeding (principal); K20.90 Esophagitis, unspecified without bleeding; K31.7 Polyp of stomach and duodenum; I10 Essential (primary) hypertension; Z79.01 Long term (current) use of anticoagulants
CPT/HCPCS: 88305; 99153; G0500; J0690; J2250; J3010; J7121